=== PATIENT | male | born 1930 | race Caucasian/White ===

== ENCOUNTER 2016-12-23 13:43 | Emergency (ER) | payer OTHER ==
[~2016-12-23] VITALS: Ht 175.3 cm; Wt 63.5 kg
[~2016-12-23 13:43] MED LIST: ACCUNEB SO1.25 MG/1 INH; ACETAMINOPHEN-1 EAC1 PO; ACIDOPHILUS1 EAC3 PO; ALUM-MAG HYDRO360 ML PER TUBE; APAP650 PO; ASPIRIN325 PO; ATORVASTATIN CA40 MG PO; AUGMENTIN 500-1 EACH PO; AUGMENTIN 875-1 EACH PO; AUGMENTIN 875875 MG PO; BISACODYL SUPP10 MG RECTAL; CARDIZEM CD120 MG PO; CARDIZEM CD240 MG PO; CEFTAZIDIME1 GM IV; CEFTIN500 MG PO; CEFUROXIME250 MG PO; DERMASEPTIN OI113 GM TOP; ENSURE ORIGINA237 ML PO; FEVERALL650 MG RECTAL; FLEET ENEMA118 ML RC; FLOMAX0.4 MG PO; HYTRIN 5 M5 MG/1 CAP PO; IRON325 PO; KLOR-CON 1010 MEQ PO; LEVAQUIN 500 M500 M1 PO; LOPRESSOR50 PO; MACROBID 100 M100 M1 PO; MILK OF MA2400 MG/10 PO; MORPHINE SULFATE; MULTIVITAMINS PO; OMEPRAZOLE20 MG PO; ONDANSETRON HCL4 M2; ONDANSETRON HCL4 M2 PO; OXYGEN; PROBIOTIC1 EAC1 PO; REMERON15 M2 PO; ROSUVASTATIN CA20 MG PO; SENNA S TABLET1 EACH PO; TOPROL XL25 MG PO; TOPROL XL50 MG PO; TYLENOL325 MG PO; UNICOMPLEX M TA1 TA1 PO; UROCIT-K10 ME1 PO; VITAMINC500; VITAMINC500 PO; ZANTAC 150MG T150 MG PO; ZINC SULFATE 2220 M1 PO
== END 2016-12-23 17:39 | disposition home or self-care (01) ==
LOC: ER 13:43
DX: T83.098A Other mechanical complication of other urinary catheter, initial encounter (principal); I10 Essential (primary) hypertension; I74.9 Embolism and thrombosis of unspecified artery; K21.9 Gastro-esophageal reflux disease without esophagitis; I48.91 Unspecified atrial fibrillation; E78.00 Pure hypercholesterolemia, unspecified; F32.9 Major depressive disorder, single episode, unspecified; I69.320 Aphasia following cerebral infarction; Z86.2 Personal history of diseases of the blood and blood-forming organs and certain disorders involving the immune mechanism; Z87.440 Personal history of urinary (tract) infections

== ENCOUNTER 2017-02-12 14:00 | Inpatient (IN) | payer OTHER ==
[~2017-02-12] VITALS: Ht 180.3 cm; Wt 61.7 kg
--- NOTE | ~2017-02-12 | EKG ---
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
--- NOTE | ~2017-02-12 | EKG ---
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
--- NOTE | ~2017-02-12 | HC ---
[facility] [place] [address] CONSULTATION Name: WILLIAN MARTINEZ Room #: 456-P [facility] IN .R.#: [id number] Admission: 02/12/17 Attend Phys: Dulce Olvera MD Discharge: 02/17/17 Date of : 28 Report #: [id number] THIS REPORT FOR: //name// CC: Dulce Gutierrez [facility] DATE OF SERVICE: 02/13/2017 CHIEF COMPLAINT: Left hip stage IV pressure ulceration. HISTORY OF PRESENT ILLNESS: This is an 86-year-old pleasant, but slightly confused male patient who is admitted to the hospital with decreased urine output. He has a history of dementia and cerebrovascular accident. He is noted to have a longstanding history of a pressure ulcer to the left hip. He was last here in [place] in May and it was noted at that time. Additional interval history regarding his hip ulcer is unknown to me. The patient cannot provide any information due to his level of dementia. PAST MEDICAL HISTORY: atrial fibrillation, history of dementia, benign prostatic hypertrophy, left hip pressure ulcer, history of rapid atrial fibrillation, and recurrent urinary tract infections. ALLERGIES: None. SOCIAL HISTORY: Negative for known current alcohol or tobacco use. FAMILY HISTORY: Unknown. MEDICATIONS: Remeron, omeprazole, Flomax, Tylenol, senna, Dulcolax, vitamin C, morphine, Zofran, potassium, and Ativan. SOCIAL HISTORY: The patient is a former smoker. REVIEW OF SYSTEMS: Unobtainable due to the patient's level of alertness and his dementia. PHYSICAL EXAMINATION: VITAL SIGNS: At this time include pulse rate 72, respiratory rate of 20, blood pressure 139/90, and temperature 97.7. GENERAL: This is a chronically ill-appearing male patient who appears to be in no distress. HEAD: Normocephalic. NOSE AND THROAT: Clear. NECK: Supple. LUNGS: Clear. ABDOMEN: Soft. Bowel sounds present. [facility] [address] [place] [address] CONSULTATION Name: WILLIAN MARTINEZ Room #: 456-[facility] IN M.R.#: [id number] Admission: 02/12/17 Attend Phys: Dulce Olvera MD Discharge: 02/17/17 Date of : 28 Report #: [id number] EXTREMITIES: Demonstrate the feet are pink, warm, and dry. The heels are not boggy and there is no evidence of any breakdown. Distal pulses are diminished, yet palpable. He has some flexion contractures of his knees and hips. He has a stage IV pressure ulcer of the left hip, there is undermining with exposed bone in the deep base, clean and granulating. There is some yellow green drainage, but it does not appear to be overtly infected and the periwound skin is intact and without significant erythema. CLINICAL IMPRESSION: 1. Stage IV pressure on the left hip. 3. Dementia. 3. Cerebrovascular accident. 4. Protein-calorie malnutrition with albumin of 1.9. RECOMMENDATIONS: At this point in time, we will recommend a 1/4 strength Dakin's moist gauze packing to the area every 12 hours, secondary dressing of an ABD pad, he will need turning and repositioning while in bed, protective boots while in bed. I appreciate being asked to see him in consultation. <ELECTRONICALLY SIGNED> By: Alex Mitchell MD 02/17/17 1716 [id number] [id number] Alex Mitchell MD /nt
[2017-02-12 14:03] VITALS: BP 86/42
[2017-02-12 15:38] LABS: ABSOLUTE NEUTROPHILS 4.5 thou/uL (1.4-8.2); BASOPHILS 0.1 % (0.0-2.0); EOSINOPHILS 2.8 % (0.0-3.0); HEMATOCRIT 38.7 % (42.0-52.0); LYMPHOCYTES 30.8 % (24.0-44.0); MCH 29.6 pg (26.0-34.0); MCHC 33.5 g/dL (28.0-37.0); MCV 88.2 fL (80.0-100.0); MONOCYTES 9.3 % (1.0-8.0); PLATELET COUNT 180 thou/uL (150-400); RBC 4.39 mil/uL (4.50-6.00); RDW 16.1 % (10.5-14.5); WBC 7.9 thou/uL (4.0-11.0)
[2017-02-12 15:39] LABS: MANUAL DIFF NO
[2017-02-12] MEDS ORDERED: POTASSIUM CITR15 MEQ PO (15:44)
[2017-02-12] MEDS ORDERED: LORAZEPAM 22 MG/1 ML IM (15:44)
[2017-02-12 15:46] LABS: CALCIUM 9.6 mg/dL (8.5-10.1); POTASSIUM 4.8 mmol/L (3.5-5.1)
[2017-02-12 16:27] LABS: URINE BILIRUBIN NEGATIVE (Negative); URINE BLOOD 2+ (Negative); URINE COLOR YELLOW; URINE GLUCOSE-RANDOM* NEGATIVE (Negative); URINE KETONES NEGATIVE (Negative); URINE LEUKOCYTES-REFLEX 3+ (Negative); URINE PROTEIN (DIPSTICK) 2+ (Negative); URINE SPECIFIC GRAVITY 1.025 (1.003-1.035); URINE UROBILINOGEN 0.2 E.U./dl (0.2-1.0)
[2017-02-12 16:42] LABS: SQUAMOUS 0-3 Few /LPF (0-3); URINE WBC-REFLEX >25 Many /HPF (0-5)
[2017-02-12 16:43] LABS: CASTS None Seen /LPF (None Seen); CRYSTALS None Seen /LPF (None Seen); WBC CLUMPS Moderate (None Seen)
[2017-02-12 16:44] LABS: URINE RBC 3-10 Few /HPF (0-2)
[2017-02-12 18:10] VITALS: BP 94/51
[2017-02-12 18:36] VITALS: BP 103/61
[2017-02-12 19:32] VITALS: BP 141/81
[2017-02-13 00:45] VITALS: BP 152/92
[2017-02-13 04:08] LABS: CHOLESTEROL 171 mg/dL (<200); HDL CHOLESTEROL 36 mg/dL (>40); LDL CHOLESTEROL 116 mg/dL (<100); TC:HDL 4.8 Ratio (Not establshd); TRIGLYCERIDE 97 mg/dL (<150); TROPONIN-I < 0.04 ng/mL (<0.04-0.07); VLDL 19 mg/dL (<40)
[2017-02-13 04:11] LABS: SERUM ASSESSMENT Clear
[2017-02-13 04:28] VITALS: BP 152/96
[2017-02-13 07:16] VITALS: BP 135/83
[2017-02-13 11:27] LABS: CREATININE 1.7 mg/dL (0.7-1.3); POTASSIUM 4.3 mmol/L (3.5-5.1)
[2017-02-13 11:32] VITALS: BP 139/90
[2017-02-13 15:32] VITALS: BP 111/73
[2017-02-13 19:07] VITALS: BP 131/71
[2017-02-14 04:18] VITALS: BP 146/83
[2017-02-14 04:52] LABS: ABSOLUTE NEUTROPHILS 3.1 thou/uL (1.4-8.2); BASOPHILS 1.4 % (0.0-2.0); EOSINOPHILS 4.3 % (0.0-3.0); HEMATOCRIT 36.2 % (42.0-52.0); LYMPHOCYTES 36.3 % (24.0-44.0); MCH 29.3 pg (26.0-34.0); MCHC 33.2 g/dL (28.0-37.0); MCV 88.1 fL (80.0-100.0); MONOCYTES 10.4 % (1.0-8.0); PLATELET COUNT 154 thou/uL (150-400); POLYS 47.6 % (36.0-66.0); RBC 4.11 mil/uL (4.50-6.00); RDW 15.9 % (10.5-14.5); WBC 6.5 thou/uL (4.0-11.0)
[2017-02-14 04:57] LABS: MANUAL DIFF NO
[2017-02-14 04:59] LABS: CALCIUM 9.2 mg/dL (8.5-10.1); CREATININE 1.4 mg/dL (0.7-1.3); POTASSIUM 4.3 mmol/L (3.5-5.1)
[2017-02-14 08:59] VITALS: BP 176/105
[2017-02-14 14:41] VITALS: BP 172/89
[2017-02-14 17:02] VITALS: BP 185/96
[2017-02-14 19:28] VITALS: BP 158/101
[2017-02-15 03:45] VITALS: BP 137/96
[2017-02-15 07:16] VITALS: BP 157/98
[2017-02-15 11:57] VITALS: BP 134/83
[2017-02-15 16:07] VITALS: BP 147/98
[2017-02-15 20:33] VITALS: BP 141/91
[2017-02-16 05:00] VITALS: BP 150/93
[2017-02-16 08:29] VITALS: BP 159/100
[2017-02-16 12:18] VITALS: BP 147/91
[2017-02-16 16:00] VITALS: BP 153/87
[2017-02-16 19:44] VITALS: BP 150/92
[2017-02-17 05:38] LABS: ABSOLUTE NEUTROPHILS 3.5 thou/uL (1.4-8.2); BASOPHILS 1.5 % (0.0-2.0); EOSINOPHILS 3.3 % (0.0-3.0); HEMATOCRIT 36.7 % (42.0-52.0); LYMPHOCYTES 33.7 % (24.0-44.0); MCH 28.7 pg (26.0-34.0); MCHC 32.6 g/dL (28.0-37.0); MCV 87.8 fL (80.0-100.0); MONOCYTES 11.1 % (1.0-8.0); PLATELET COUNT 159 thou/uL (150-400); POLYS 50.4 % (36.0-66.0); RBC 4.18 mil/uL (4.50-6.00); RDW 16.1 % (10.5-14.5); WBC 6.9 thou/uL (4.0-11.0)
[2017-02-17 05:39] LABS: MANUAL DIFF NO
[2017-02-17 05:48] VITALS: BP 138/84
[2017-02-17 05:57] LABS: CALCIUM 9.3 mg/dL (8.5-10.1); CREATININE 1.5 mg/dL (0.7-1.3); MAGNESIUM 1.6 mg/dL (1.8-2.4); POTASSIUM 4.1 mmol/L (3.5-5.1)
[2017-02-17 08:36] VITALS: BP 149/89
[2017-02-17] MEDS ORDERED: CARDIZEM CD180 MG PO (11:43)
[2017-02-17] MEDS ORDERED: AUGMENTIN 875875 MG PO (11:43)
[2017-02-17] MEDS ORDERED: ACIDOPHILUS1 EAC4 PO (11:43)
[2017-02-17 11:57] VITALS: BP 127/76
== END 2017-02-17 15:38 | DRG 689 ==
LOC: ER 14:00 → 4S 16:54 → 4W 16:54 → EROBS 16:54 → 4S 17:31 → 4W 18:40
PROVIDERS: Emergency Medicine; Internal Medicine; Internal Medicine Endocrinology, Diabetes & Metabolism; Nurse Practitioner
DX: N39.0 Urinary tract infection, site not specified (principal); L89.224 Pressure ulcer of left hip, stage 4; N17.9 Acute kidney failure, unspecified; E46 Unspecified protein-calorie malnutrition; I69.354 Hemiplegia and hemiparesis following cerebral infarction affecting left non-dominant side; Z68.1 Body mass index [BMI] 19.9 or less, adult; K59.00 Constipation, unspecified; H54.0 Blindness, both eyes; K21.9 Gastro-esophageal reflux disease without esophagitis; F32.9 Major depressive disorder, single episode, unspecified; E78.00 Pure hypercholesterolemia, unspecified; I95.9 Hypotension, unspecified; F03.90 Unspecified dementia, unspecified severity, without behavioral disturbance, psychotic disturbance, mood disturbance, and anxiety; N40.0 Benign prostatic hyperplasia without lower urinary tract symptoms; N18.9 Chronic kidney disease, unspecified; I12.9 Hypertensive chronic kidney disease with stage 1 through stage 4 chronic kidney disease, or unspecified chronic kidney disease; I48.0 Paroxysmal atrial fibrillation; B95.2 Enterococcus as the cause of diseases classified elsewhere; Z79.899 Other long term (current) drug therapy; Z87.891 Personal history of nicotine dependence; Z80.0 Family history of malignant neoplasm of digestive organs; I69.320 Aphasia following cerebral infarction; Z86.718 Personal history of other venous thrombosis and embolism
CPT/HCPCS: 10045

== ENCOUNTER 2017-04-21 16:14 | Emergency (ER) | payer OTHER ==
[~2017-04-21] VITALS: Ht 185.4 cm; Wt 74.8 kg
[~2017-04-21 16:14] MED LIST changes: +ACIDOPHILUS1 EAC4 PO; +CARDIZEM CD180 MG PO; +LORAZEPAM 22 MG/1 ML IM; +POTASSIUM CITR15 MEQ PO
[2017-04-21 17:23] LABS: URINE BILIRUBIN NEGATIVE (Negative); URINE BLOOD 3+ (Negative); URINE COLOR YELLOW; URINE GLUCOSE-RANDOM* NEGATIVE (Negative); URINE KETONES 1+ (Negative); URINE NITRITE NEGATIVE (Negative); URINE PROTEIN (DIPSTICK) 2+ (Negative); URINE UROBILINOGEN 0.2 E.U./dl (0.2-1.0)
[2017-04-21 17:32] LABS: URINE WBC >25 Many /HPF (0-5)
[2017-04-21 17:33] LABS: BACTERIA >30 Many /HPF (None Seen); CASTS None Seen /LPF (None Seen); CRYSTALS None Seen /LPF (None Seen); SQUAMOUS None Seen /LPF (0-3); URINE RBC 3-10 Few /HPF (0-2)
[2017-04-21] MEDS ORDERED: AUGMENTIN 875-1 EACH PO (17:45)
== END 2017-04-21 18:59 | disposition home or self-care (01) ==
LOC: ER 16:14
PROVIDERS: Physician Assistant
DX: T83.021A Displacement of indwelling urethral catheter, initial encounter (principal); N39.0 Urinary tract infection, site not specified; R33.9 Retention of urine, unspecified; I10 Essential (primary) hypertension; K21.9 Gastro-esophageal reflux disease without esophagitis; I48.91 Unspecified atrial fibrillation; E78.00 Pure hypercholesterolemia, unspecified; F10.99 Alcohol use, unspecified with unspecified alcohol-induced disorder; Z87.440 Personal history of urinary (tract) infections; Z87.01 Personal history of pneumonia (recurrent); Z98.890 Other specified postprocedural states